=== PATIENT | male | born 1995 | race American Indian/Alaskan Native ===

== ENCOUNTER 2020-06-18 16:35 | Emergency (ER) | payer SELFPAY ==
[2020-06-18 16:43] VITALS: BP 133/79
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
== END 2020-06-18 20:25 | disposition home or self-care (01) ==
LOC: ED 16:35
DX: S40.022A Contusion of left upper arm, initial encounter (principal); X58.XXXA Exposure to other specified factors, initial encounter; Y93.89 Activity, other specified; Y92.89 Other specified places as the place of occurrence of the external cause; Y99.8 Other external cause status
CPT/HCPCS: 99282